=== PATIENT | female | born 1995 | race Caucasian/White ===

== ENCOUNTER 2020-10-20 06:10 | Observation (INO) ==
[2020-10-20 07:09] LABS: Bilirubin,Urine Negative (Negative); Blood,Urine Small (Negative); Clarity,Urine Clear (Clear); Color,Urine Light-Yellow (Yellow); Glucose,Urine (UA) Normal (Normal); Ketones,Urine Negative (Negative); Leukocyte Esterase,Urine Negative (Negative); Mucus,Urine Few per lpf (None-Few); Nitrite,Urine Negative (Negative); PH,Urine 5.5 pH Units (5.0-8.0); Protein,Urine Trace mg/dL (Neg-Trace); RBC,Urine 0-3 per hpf (0-3); Specific Gravity,Urine 1.028 (1.010-1.025); Squamous Epithelial Cell,Urine Moderate per hpf (None-Few); Urobilinogen,Urine Normal (Normal)
[2020-10-20 07:11] LABS: Basophils % 0.8 %; Eosinophils # 0.3 K/mcL (0.0-0.6); Eosinophils % 5.7 %; Hematocrit 45.2 % (35.3-44.9); Hemoglobin 14.1 g/dL (11.5-15.4); Immature Granulocytes % 0.2 % (0-4); Lymphocytes # 1.7 K/mcL (0.6-4.6); Mean Corpuscular HGB Conc 31.2 g/dL (31.6-35.5); Mean Corpuscular Hemoglobin 29.2 pg (28.0-33.3); Mean Corpuscular Volume 93.6 fL (83.0-100.0); Mean Platelet Volume 10.3 fL (9.4-12.4); Monocytes # 0.5 K/mcL (0.0-1.3); Monocytes % 9.4 %; Neutrophils # 2.7 K/mcL (1.6-8.9); Platelet Count 285 K/mcL (140-400); Red Blood Count 4.83 M/mcL (3.82-4.97); Red Cell Distribution Width 13.1 % (11.5-14.5); Segmented Neutrophils % 50.9 %; White Blood Count 5.2 K/mcL (4.3-11.1)
[2020-10-20 07:29] LABS: Acetaminophen < 10 mcg/mL (10-20); Alanine Aminotransferase 6 Units/L (7-52); Albumin 4.6 g/dL (3.5-5.7); Albumin/Globulin Ratio 1.5 (1.1-2.2); Aspartate Amino Transferase 15 Units/L (13-39); BUN/Creatinine Ratio 18 (6-26); Bilirubin,Direct 0.1 mg/dL (0.0-0.2); Bilirubin,Indirect 0.7 mg/dL (0.0-1.0); Bilirubin,Total 0.8 mg/dL (0.3-1.0); Blood Urea Nitrogen 14 mg/dL (6-20); Calcium 9.5 mg/dL (8.6-10.3); Carbon Dioxide 26 mEq/L (23-29); Chloride 107 mEq/L (98-107); Ethanol < 10 mg/dL (Less than 10); Glucose 108 mg/dL (70-105); Osmolality,Calculated 287 (280-300); Potassium 3.8 mEq/L (3.5-5.1); Salicylate < 2.5 mg/dL (15.0-30.0); Sodium 138 mEq/L (136-145); Total Protein 7.6 g/dL (6.4-8.9); eGFR For African Americans > 60 (> 60); eGFR For Non-African Americans > 60 (> 60)
[2020-10-20 07:32] LABS: Amphetamine Screen,Urine Negative ng/mL (Cutoff=1000); Barbiturate Screen,Urine Negative ng/mL (Cutoff=200); Benzodiazepines Screen,Urine Negative ng/mL (Cutoff=200); Cannabinoid Screen,Urine Negative ng/mL (Cutoff = 50); Cocaine Screen,Urine Negative ng/mL (Cutoff= 300); Opiate Screen,Urine Negative ng/mL (Cutoff=300); Phencyclidine Screen,Urine Negative ng/mL (Cutoff=25)
[2020-10-20 07:55] LABS: Alkaline Phosphatase 68 Units/L (34-104)
[2020-10-20] MEDS ORDERED: *HR* LORazepam 1 MG TABLET PO PRN (10:03)
[2020-10-20] MEDS ORDERED: Mag Hydrox/Al Hydrox/Simeth 30 ML UDC PO PRN (10:03)
[2020-10-20] MEDS ORDERED: Haloperidol Lactate 5 MG/ML VIAL IM PRN (10:03)
[2020-10-20] MEDS ORDERED: *HR* LORazepam 2 MG/ML VIAL IM PRN (10:03)
[2020-10-20] MEDS ORDERED: Acetaminophen 325 MG TABLET PO PRN (10:03)
[2020-10-20] MEDS ORDERED: MOM Conc 10 ML UD.LIQ PO PRN (10:03)
[2020-10-20] MEDS ORDERED: QUEtiapine Fumarate 25 MG TABLET PO PRN (10:03)
[2020-10-20] MEDS ORDERED: traZODone 50 MG TABLET PO PRN (10:03)
[2020-10-20] MEDS ORDERED: hydrOXYzine pamoate 25 MG CAPSULE PO PRN (10:03)
[2020-10-20] MEDS: Ibuprofen 400 MG TABLET PO PRN (20:52)
[2020-10-21] MEDS: Ibuprofen 400 MG TABLET PO PRN (22:00)
[2020-10-22 09:08] VITALS: BP 136/78
== END 2020-10-22 11:50 | disposition home or self-care (01) ==
LOC: EMEROOARM 06:10 → INTOOBSV 09:58 → 1ANU 09:58
PROVIDERS: ADMIT Psychiatry & Neurology Psychiatry; ATTEND Psychiatry & Neurology Psychiatry